=== PATIENT | male | born 1955 | race Hispanic/Latino ===

== ENCOUNTER 2018-05-12 04:19 | Observation (INO) | payer MEDICARE ==
[~2018-05-12] VITALS: Ht 170.2 cm; Wt 119.3 kg
[2018-05-12] MEDS ORDERED: DEXTROSE 50%-WATER 50 ML DISP.SYRIN IV ONE (04:41)
[2018-05-12 04:46] LABS: APPEARANCE,URINE Clear (CLEAR); BILIRUBIN,URINE Negative (NEGATIVE); COLOR,URINE Yellow (YELLOW); GLUCOSE, URINE (UA) Negative (NEGATIVE); KETONES,URINE Negative (NEGATIVE); LEUKOCYTE ESTERASE ,URINE Negative (NEGATIVE); NITRATE,URINE Negative (NEGATIVE); OCCULT BLOOD,URINE Negative (NEGATIVE); PROTEIN,URINE POS 1+ (NEGATIVE); UROBILINOGEN,URINE 0.2 mg/dL (0.2-1.0)
[2018-05-12 04:54] LABS: AMPHET/METH SCREEN,URINE NEGATIVE (NEGATIVE); BARBITURATE SCREEN, URINE NEGATIVE (NEGATIVE); BENZODIAZEPINES SCREEN,URINE NEGATIVE (NEGATIVE); CANNABINOID SCREEN,URINE NEGATIVE (NEGATIVE); COCAINE SCREEN,URINE NEGATIVE (NEGATIVE); OPIATE SCREEN,URINE NEGATIVE (NEGATIVE); PHENCYCLIDINE SCREEN,URINE NEGATIVE (NEGATIVE)
[2018-05-12 05:03] LABS: HEMATOCRIT 31.7 % (42-54); LYMPHOCYTES % (AUTO) 6.3 % (21.0-51.0); MEAN CORPUSCULAR HGB CONC 31.9 g/dL (32.0-36.0); MONOCYTES % (AUTO) 6.3 % (3.0-13.0); NEUTROPHILS % (AUTO) 85.4 % (40.0-77.0); PLATELET COUNT (AUTO) 232 K/uL (130-400); RED BLOOD CELL COUNT(AUTO) 3.37 MIL/uL (4.50-6.20); WHITE BLOOD COUNT (AUTO) 11.9 K/uL (4.8-10.8)
[2018-05-12 05:17] LABS: CREATININE 2.9 mg/dL (0.5-1.5); POTASSIUM 5.7 mmol/L (3.5-5.1)
[2018-05-12 05:21] LABS: ALBUMIN 2.6 g/dL (3.5-5.0); BILIRUBIN,TOTAL 0.2 mg/dL (0.2-1.0)
[2018-05-12] MEDS ORDERED: SODIUM POLYSTYRENE SULFONATE 15 GM/60 ML ML ONE (06:36)
[2018-05-12] MEDS ORDERED: ACETAMINOPHEN 325 MG TAB PO PRN ×2 (06:45)
[2018-05-12] MEDS ORDERED: ONDANSETRON HCL 4 MG/2 ML VIAL IVP PRN (06:45)
[2018-05-12] MEDS ORDERED: DEXTROSE 10%-WATER 1,000 ML IV SCH (06:45)
[2018-05-12] MEDS ORDERED: FAMO40TA7 PO (07:51)
[2018-05-12] MEDS ORDERED: LORA10TA7 PO (07:51)
[2018-05-12] MEDS ORDERED: LINA5TAB PO (07:51)
[2018-05-12] MEDS ORDERED: METO-409 PO (07:51)
[2018-05-12] MEDS ORDERED: FURO40TA5 PO (07:51)
[2018-05-12] MEDS ORDERED: POTA10TA14 PO (07:51)
[2018-05-12] MEDS ORDERED: HYDR-4154 PO (07:51)
[2018-05-12] MEDS ORDERED: GLIP5TAB11 PO (07:51)
[2018-05-12] MEDS ORDERED: ATOR10 PO (07:51)
[2018-05-12] MEDS ORDERED: FOLI1TAB61 PO (07:51)
[2018-05-12] MEDS ORDERED: PIOG30TA70 PO (07:51)
[2018-05-12 08:00] VITALS: BP 183/80
[2018-05-12] MEDS: PANTOPRAZOLE SODIUM 40 MG TABLET.DR PO SCH (08:30)
[2018-05-12] MEDS: ENOXAPARIN SODIUM 30 MG/0.3 ML SQ SCH ×2 (08:32→20:21)
[2018-05-12 11:30] VITALS: BP 136/70
[2018-05-12 16:00] VITALS: BP 146/76
[2018-05-12] MEDS: INSULIN HUMULIN R 100 UNIT/ML 3ML SQ SCH ×2 (16:30→21:00)
[2018-05-12] MEDS ORDERED: GLIPIZIDE 5 MG TABLET PO SCH (17:00)
[2018-05-12] MEDS: FUROSEMIDE 40 MG TABLET PO SCH (17:56)
[2018-05-12 20:00] VITALS: BP 132/73
[2018-05-12] MEDS: HYDRALAZINE HCL 25 MG TABLET PO SCH (20:20)
[2018-05-12] MEDS: METOPROLOL TARTRATE 50 MG TAB PO SCH (20:20)
[2018-05-12] MEDS ORDERED: ATORVASTATIN CALCIUM 20 MG TABLET PO SCH (21:00)
[2018-05-13] VITALS: BP 159/83
[2018-05-13 04:00] VITALS: BP 156/78
[2018-05-13 06:18] LABS: HEMATOCRIT 30.4 % (42-54); MEAN CORPUSCULAR HEMOGLOBIN 29.9 pg (27.0-33.0); MEAN CORPUSCULAR VOLUME 93.5 fL (79-99); PLATELET COUNT (AUTO) 229 K/uL (130-400); RED BLOOD CELL COUNT(AUTO) 3.25 MIL/uL (4.50-6.20); RED CELL DISTRIBUTION WIDTH 15.9 % (11.0-15.5); WHITE BLOOD COUNT (AUTO) 10.7 K/uL (4.8-10.8)
[2018-05-13 06:25] LABS: CREATININE 2.7 mg/dL (0.5-1.5); POTASSIUM 5.3 mmol/L (3.5-5.1)
[2018-05-13] MEDS: INSULIN HUMULIN R 100 UNIT/ML 3ML SQ SCH ×2 (06:38→11:30)
[2018-05-13 06:45] LABS: HEMOGLOBIN A1C 5.2 % (4.0-6.0)
[2018-05-13] MEDS: METOPROLOL TARTRATE 50 MG TAB PO SCH (08:29)
[2018-05-13] MEDS: FUROSEMIDE 40 MG TABLET PO SCH (08:30)
[2018-05-13] MEDS: PANTOPRAZOLE SODIUM 40 MG TABLET.DR PO SCH (08:30)
[2018-05-13] MEDS: HYDRALAZINE HCL 25 MG TABLET PO SCH (08:31)
[2018-05-13] MEDS: ENOXAPARIN SODIUM 30 MG/0.3 ML SQ SCH (08:31)
[2018-05-13 08:44] VITALS: BP 153/73
[2018-05-13] MEDS ORDERED: POTASSIUM CHLORIDE 10 MEQ/TAB.SA PO SCH (09:00)
[2018-05-13] MEDS ORDERED: LORATADINE 10 MG TABLET PO SCH (09:00)
[2018-05-13] MEDS ORDERED: FAMOTIDINE 20MG TAB 20 MG TAB PO SCH (09:00)
[2018-05-13] MEDS ORDERED: PIOGLITAZONE HCL 30 MG TAB PO SCH (09:00)
[2018-05-13] MEDS ORDERED: LINAGLIPTIN 5 MG TABLET PO SCH (09:00)
[2018-05-13] MEDS ORDERED: FOLIC ACID/VITAMIN B COMP W-C 1 MG CAPSULE PO SCH (09:00)
[2018-05-13 12:05] VITALS: BP 144/69
[2018-05-13] MEDS ORDERED: INSU100V3 SQ (13:35)
== END 2018-05-13 15:15 | disposition home or self-care (01) ==
LOC: EDH 04:19 → EDHIP 06:30 → 3DH 07:47
PROVIDERS: ADMIT Internal Medicine Pulmonary Disease; ATTEND Internal Medicine Pulmonary Disease
DX: E11.649 Type 2 diabetes mellitus with hypoglycemia without coma (principal); E16.0 Drug-induced hypoglycemia without coma; I12.9 Hypertensive chronic kidney disease with stage 1 through stage 4 chronic kidney disease, or unspecified chronic kidney disease; E11.22 Type 2 diabetes mellitus with diabetic chronic kidney disease; E11.51 Type 2 diabetes mellitus with diabetic peripheral angiopathy without gangrene; N18.4 Chronic kidney disease, stage 4 (severe); E44.0 Moderate protein-calorie malnutrition; E66.01 Morbid (severe) obesity due to excess calories; E78.5 Hyperlipidemia, unspecified; H54.8 Legal blindness, as defined in USA; R53.2 Functional quadriplegia; Z74.01 Bed confinement status; Z80.42 Family history of malignant neoplasm of prostate; Z82.49 Family history of ischemic heart disease and other diseases of the circulatory system; Z83.3 Family history of diabetes mellitus; Z89.511 Acquired absence of right leg below knee; Z91.19 Patient's noncompliance with other medical treatment and regimen
CPT/HCPCS: 36415 ×2; 70450; 80048; 80053; 80305; 81003; 82948 ×10; 82550; 83036; 84484; 85025; 85027; 93005; 96360; 96361 ×2; 96372 ×2; 99285; G0378 ×33; G0480; J1650 ×3; J3490; J7070